=== PATIENT | female | born 1980 | race Two or more races ===

== ENCOUNTER 2021-11-30 10:49 | Emergency (ER) | payer MEDICAID, OTHER ==
[~2021-11-30] VITALS: Ht 157.5 cm; Wt 69.3 kg
[2021-11-30 11:03] VITALS: BP 157/76
[2021-11-30] MEDS ORDERED: cefTRIAXone SOD 1,000 MG VL IM ONE (12:15)
[2021-11-30] MEDS ORDERED: DexAMETHasone SOD PHOS 10MG/1ML VIAL INJ IM ONE (12:15)
[2021-11-30] MEDS ORDERED: AZIT250T8 PO (12:29)
[2021-11-30] MEDS ORDERED: METH4PAK PO (12:29)
== END 2021-11-30 12:36 | disposition home or self-care (01) ==
LOC: ER 10:49
DX: U07.1 COVID-19 (principal); J03.90 Acute tonsillitis, unspecified; J45.909 Unspecified asthma, uncomplicated; Z90.49 Acquired absence of other specified parts of digestive tract
CPT/HCPCS: 71045; 96372; 99284; J0696; J1100

== ENCOUNTER 2023-01-30 16:14 | Emergency (ER) | payer MEDICAID ==
[~2023-01-30] VITALS: Ht 154.9 cm; Wt 75.2 kg
[~2023-01-30 16:14] MED LIST: AZIT-81 PO; METH4PAK PO
[2023-01-30 18:42] VITALS: BP 129/69; PULSE 86; RESP 22; TEMP 98.2; O2SAT 98
[2023-01-30] MEDS ORDERED: ONDANSETRON ODT 4 MG TAB PO ONE (18:45)
[2023-01-30] MEDS ORDERED: HYDROcodone-ACET 10/325MG TAB PO ONE (18:45)
[2023-01-30] MEDS ORDERED: IBUP1TAB5 PO (18:56)
[2023-01-30] MEDS ORDERED: HYDR-4798 PO (18:56)
== END 2023-01-30 19:09 | disposition home or self-care (01) ==
LOC: ER 16:14
DX: S16.1XXA Strain of muscle, fascia and tendon at neck level, initial encounter (principal); S43.491A Other sprain of right shoulder joint, initial encounter; J45.909 Unspecified asthma, uncomplicated; Z90.49 Acquired absence of other specified parts of digestive tract; Z79.1 Long term (current) use of non-steroidal anti-inflammatories (NSAID); Z79.899 Other long term (current) drug therapy; V89.2XXA Person injured in unspecified motor-vehicle accident, traffic, initial encounter; Y93.I9 Activity, other involving external motion; Y92.89 Other specified places as the place of occurrence of the external cause; Y99.8 Other external cause status
CPT/HCPCS: 72040; 73030; 99284; Q0162